=== PATIENT | male | born 1955 | race Caucasian/White ===

== ENCOUNTER 2017-09-05 20:02 | Emergency (ER) | payer SELFPAY ==
[2017-09-05 20:03] VITALS: BP 122/88; PULSE 97; RESP 18; TEMP 36.8; O2SAT 98; BMI 29.3
--- NOTE | 2017-09-05 20:18 | ED.DCSUM_ITS ---
- ER Visit Summary Date of Service: 09/05/17 Chief Complaint: Right ear pain History of Present Illness: The patient is a 62 M with no primary care physician. Reports she has right ear pain that began 2 days ago. He describes it as an aching pain. He has muffled hearing. Reports the pain is 5 out of 10 in severity. Is worsened by nothing relieved by nothing. Ports on the way to the emergency department he had a vague sense of movement. He denies any double vision or slurred speech. States that he did become nauseated during this. That has now resolved. Review of systems: General: No fever, chills, cold sweats. Cardiovascular: No chest pain, palpitations. Respiratory: No cough, shortness of breath, dyspnea on exertion. Gastrointestinal: No abdominal pain, vomiting, diarrhea, melena, or hematochezia. Genitourinary: No dysuria, frequency, hematuria. Skin: No rash. Neuro: No numbness, weakness. Physical Examination: Vitals: Stable. Afebrile. General: Well-nourished and well-developed. HEENT: Right external auditory canal has mild swelling with a moderate amount of exudate present. The TM was visualized and is normal. Left TM is normal. Head: Normocephalic atraumatic. Neck: Supple, no lymphadenopathy. No JVD. Nontender. Cardiovascular: Regular rate and rhythm. No murmurs. Respiratory: No respiratory distress. Clear to auscultation bilaterally. Abdominal: Soft, nontender, nondistended, normal bowel sounds. No guarding, rebound, or peritoneal signs. Back: Nontender. Extremities: Nontender, no edema. Skin: Normal color, no rash. Neurologic: Alert and oriented ?3. Cranial nerves II through XII are intact. Normal strength and sensation. Psych: Normal affect. Emergency Department Course and Treatment: Patient refused pain medications and is resting comfortably. Treatment Plan: Patient will be discharged with [facility] and instructed to follow-up Dr. Caceres in 1 week for another exam. Return to the emergency department for any worsening symptoms. Disposition: To home in improved and stable condition. Impression: 1. Right otitis externa. This note was generated with [employer] dictation software. It may contain incorrect words, spelling, and punctuation that were not noted in review of the chart prior to signing ED Disposition - Plan for ED Patient: Disposition: Home or Assisted Living Chief Complaint: Ear Problem Instructions: ED Otitis Externa Prescriptions: Ciprofloxacin HCl/Dexameth [Ciprodex Otic Suspension] 4 drop RIGHT EAR BID #1 bottle Referrals: Wan Caceres MD [STAFF PHYSICIAN] - 1 Week if not improving
[2017-09-05 20:29] VITALS: RESP 18
== END 2017-09-05 20:29 | disposition home or self-care (01) ==
PROVIDERS: Emergency Provider Emergency Medicine
DX: H60.91 Unspecified otitis externa, right ear (principal); R51 Headache
CPT/HCPCS: 99282